=== PATIENT | female | born 1995 | race American Indian/Alaskan Native ===

== ENCOUNTER 2016-05-31 18:49 | Outpatient (CLI) | payer MEDICAID ==
[2016-05-31] MEDS ORDERED: LACTATED RINGERS 500 ML IV ONE (20:09)
[2016-05-31 21:23] LABS: Bilirubin,Urine NEG (Negative); Blood,Urine NEG (Negative); Ketones,Urine TR mg/dL (Negative); Leukocyte Esterase,Urine NEG (Negative); Mucus,Urine 3+ /HPF; Nitrite,Urine NEG (Negative); Urobilinogen,Urine < 2.0 mg/dL (<2.0)
[2016-05-31 21:28] VITALS: BP 95/49
== END 2016-05-31 21:45 | disposition home or self-care (01) ==
LOC: TRG 18:49
PROVIDERS: ATTEND Obstetrics & Gynecology
DX: O77.9 Labor and delivery complicated by fetal stress, unspecified (principal); O47.02 False labor before 37 completed weeks of gestation, second trimester; Z3A.23 23 weeks gestation of pregnancy
CPT/HCPCS: 59025; 81001

== ENCOUNTER 2016-08-04 13:51 | Outpatient (CLI) | payer MEDICAID ==
[2016-08-04 14:48] VITALS: BP 118/81
[2016-08-04] MEDS ORDERED: LACTATED RINGERS 500 ML IV ONE (16:07)
[2016-08-04 16:35] LABS: Bacteria,Urine 1+ /HPF (Negative); Bilirubin,Urine NEG (Negative); Blood,Urine NEG (Negative); Ketones,Urine TR mg/dL (Negative); Leukocyte Esterase,Urine NEG (Negative); Mucus,Urine 3+ /HPF; Nitrite,Urine NEG (Negative); Urobilinogen,Urine < 2.0 mg/dL (<2.0)
[2016-08-04] MEDS ORDERED: ZOFRAN PO ONE (16:45)
== END 2016-08-04 17:23 | disposition home or self-care (01) ==
LOC: TRG 13:51
PROVIDERS: ATTEND Obstetrics & Gynecology
DX: Z34.93 Encounter for supervision of normal pregnancy, unspecified, third trimester (principal); Z3A.32 32 weeks gestation of pregnancy
CPT/HCPCS: 59025; 81001; J7120; Q0162

== ENCOUNTER 2016-08-16 08:20 | Outpatient (CLI) | payer MEDICAID ==
--- NOTE | 2016-08-17 13:16 | Ultrasound Report ---
RIGHT UPPER QUADRANT ABDOMINAL ULTRASOUND: 08/16/16 08:20:00 CLINICAL: Right upper quadrant pain. FINDINGS: High-resolution ultrasound demonstrated a normal liver. Normal hepatic vasculature and inferior vena cava. Normally distended gallbladder with small stones layering dependently within the gallbladder. The gall bladder wall measures 1.5 mm in thickness. Normal intrahepatic and extra hepatic bile ducts. The common bile duct measures 3.9 mm diameter. The pancreas was not well imaged because of bowel gas. Normal upper abdominal aorta. The right kidney is normal and measures 10.5 x 4.1 x 4.6cm. No ascites or mass. IMPRESSION: Cholelithiasis but no signs of acute cholecystitis. No evidence of choledocholithiasis.
== END 2016-08-16 08:21 | disposition home or self-care (01) ==
LOC: US 08:20
PROVIDERS: ATTEND Obstetrics & Gynecology
DX: K80.20 Calculus of gallbladder without cholecystitis without obstruction (principal); K82.8 Other specified diseases of gallbladder
CPT/HCPCS: 76705

== ENCOUNTER 2016-11-04 08:45 | Emergency (ER) | payer MEDICAID ==
[2016-11-04 09:12] VITALS: BP 124/70
--- NOTE | 2016-11-04 09:45 | Emergency Department Report ---
Chief Complaint: Abdominal Pain Stated Complaint: ABD PAIN Time Seen by Provider: 11/04/16 09:05 - HPI History of Present Illness: here w dark brown vag bleeding had baby in August lmp september no bc not concerned std also w abd pain no dysuria g2 p 1 vss. nad - ROS Review of Systems: abd pain vag bleed pos home preg 4 days ago lmp September 2016 - Exam Vital Signs: Vital Signs 11/04/16 09:07 Temperature 98.7 F Pulse Rate 81 Respiratory 16 Rate Blood Pressure 124/70 O2 Sat by Pulse 100 Oximetry MSE screening note: Focused history and physical exam performed. Due to findings the following was ordered: ED Disposition for MSE Condition: Stable Instructions: Abdominal Pain (ED)
[2016-11-04 09:53] LABS: Anion Gap 19 mmol/L; BUN/Creatinine Ratio 14.44; Blood Urea Nitrogen 13 mg/dL (7-17); Calcium 9.3 mg/dL (8.4-10.2); Carbon Dioxide 23 mmol/L (22-30); Glucose 84 mg/dL (65-100); Sodium 140 mmol/L (137-145)
[2016-11-04 09:55] LABS: Basophils % (Auto) 0.3 % (0.0-1.8); Eosinophils % (Auto) 2.1 % (0.0-4.3); Hematocrit 40.1 % (30.3-42.9); Hemoglobin 13.1 gm/dl (10.1-14.3); Mean Corpuscular HGB Conc 33 % (30-34); Mean Corpuscular Hemoglobin 30 pg (28-32); Mean Corpuscular Volume 92 fl (79-97); Platelet Count 271 K/mm3 (140-440); Red Blood Count 4.36 M/mm3 (3.65-5.03); White Blood Count 10.7 K/mm3 (4.5-11.0)
[2016-11-04 10:12] LABS: Alanine Aminotransferase 14 units/L (7-56); Albumin 4.5 g/dL (3.9-5); Albumin/Globulin Ratio 1.3 %; Alkaline Phosphatase 61 units/L (35-129); Total Protein 7.9 g/dL (6.3-8.2)
[2016-11-04 10:16] LABS: Bilirubin,Direct < 0.2 mg/dL (0-0.2)
[2016-11-04 13:01] LABS: Bacteria,Urine 1+ /HPF (Negative); Bilirubin,Urine NEG (Negative); Blood,Urine MOD (Negative); Ketones,Urine NEG (Negative); Leukocyte Esterase,Urine SM (Negative); Mucus,Urine 1+ /HPF; Nitrite,Urine NEG (Negative); Protein,Urine <15 mg/dL mg/dL (Negative); Urobilinogen,Urine < 2.0 mg/dL (<2.0)
--- NOTE | 2016-11-04 13:24 | Event Note ---
Date: 11/04/16 numerous attempts to call pt. walked er waiting room and can not find her on 2 occasions Rn aware.
== END 2016-11-04 12:50 | disposition left against medical advice (07) ==
LOC: ED 08:45
DX: R10.9 Unspecified abdominal pain (principal); Z53.21 Procedure and treatment not carried out due to patient leaving prior to being seen by health care provider
CPT/HCPCS: 36415; 80048; 80074; 81001; 84702; 85025

== ENCOUNTER 2017-01-18 20:44 | Emergency (ER) | payer MEDICAID ==
[2017-01-18 21:31] VITALS: BP 130/80
[2017-01-18 22:34] LABS: Bilirubin,Urine NEG (Negative); Blood,Urine NEG (Negative); Ketones,Urine TR mg/dL (Negative); Leukocyte Esterase,Urine MOD (Negative); Mucus,Urine 3+ /HPF; Nitrite,Urine NEG (Negative); Urobilinogen,Urine < 2.0 mg/dL (<2.0)
[2017-01-18 22:39] LABS: Basophils % (Auto) 0.3 % (0.0-1.8); Eosinophils % (Auto) 1.7 % (0.0-4.3); Hematocrit 41.7 % (30.3-42.9); Hemoglobin 13.8 gm/dl (10.1-14.3); Mean Corpuscular HGB Conc 33 % (30-34); Mean Corpuscular Hemoglobin 30 pg (28-32); Mean Corpuscular Volume 91 fl (79-97); Platelet Count 267 K/mm3 (140-440); Red Cell Distribution Width 14.4 % (13.2-15.2); White Blood Count 11.3 K/mm3 (4.5-11.0)
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
== END 2017-01-19 03:21 | disposition left against medical advice (07) ==
LOC: ED 20:44
DX: N93.9 Abnormal uterine and vaginal bleeding, unspecified (principal); Z53.21 Procedure and treatment not carried out due to patient leaving prior to being seen by health care provider
CPT/HCPCS: 36415; 76801; 76817; 81001; 84702; 85025; 86850; 86900; 86901

== ENCOUNTER 2017-04-14 09:32 | Emergency (ER) | payer MEDICAID, OTHER ==
[2017-04-14 11:29] LABS: Bacteria,Urine 1+ /HPF (Negative); Bilirubin,Urine NEG (Negative); Blood,Urine NEG (Negative); Ketones,Urine NEG (Negative); Leukocyte Esterase,Urine NEG (Negative); Mucus,Urine FEW /HPF; Nitrite,Urine NEG (Negative); Protein,Urine <15 mg/dL mg/dL (Negative); Urobilinogen,Urine < 2.0 mg/dL (<2.0)
--- NOTE | 2017-04-14 13:17 | Emergency Department Report ---
ED Female HPI - General Chief complaint: Urogenital-Female Stated complaint: ABD PAIN/BURN WHEN URINATING Time Seen by Provider: 04/14/17 13:03 Source: patient Mode of arrival: Ambulatory Limitations: No Limitations - History of Present Illness Initial comments: PT c/o dysuria x 3 weeks. PT thinks she may have a UTI. PT denies having vaginal complaints. PT states she only has one male partner. PT states she had a depo shot this year and never followed up. PT states she still hasn't had a cycle. Complaint: dysuria -: Gradual, week(s) (three ) Quality: burning Consistency: intermittent Worsens with: urination Are you Now?: No Associated Symptoms: denies other symptoms. denies: vaginal discharge, vaginal bleeding, abdominal pain, nausea/vomiting, fever/chills - Related Data Sexually active: Yes : 1 Para: 1 Home Medications Medication Instructions Recorded Confirmed Last Taken Pnv No.95/Ferrous Fum/Folic AC 1 tab PO DAILY 08/26/16 08/26/16 08/25/16 09:00 [ Vitamins Tablet] Previous Rx's Medication Instructions Recorded Last Taken Type HYDROcodone/APAP 5-325 [Modale 1 each PO Q6HR PRN #30 tablet 08/28/16 Unknown Rx 5/325] Ibuprofen [Motrin 800 MG tab] 800 mg PO Q8HR PRN #30 tablet 08/28/16 Unknown Rx Allergies Allergy/AdvReac Type Severity Reaction Status Date / Time santizo flavor Allergy Swelling Verified 08/26/16 07:52 pear Allergy Swelling Verified 08/26/16 07:52 ED Review of Systems ROS: Stated complaint: ABD PAIN/BURN WHEN URINATING Other details as noted in HPI Comment: All other systems reviewed and negative Constitutional: denies: chills, fever Gastrointestinal: denies: nausea, vomiting Genitourinary: dysuria, abnormal menses. denies: discharge Musculoskeletal: denies: back pain ED Past Medical Hx - Past Medical History Previous Medical History?: Yes Hx Hypertension: Yes (hx of preeclampsia) Hx Congestive Heart Failure: No Hx Diabetes: No Hx Deep Vein Thrombosis: No Hx Renal Disease: No Hx Sickle Cell Disease: No Hx Seizures: No Hx Asthma: No Hx COPD: No Hx HIV: No Additional medical history: Vaginal delivery 08-27-2016 - Surgical History Past Surgical History?: No - Social History Smoking Status: Never Smoker Substance Use Type: Alcohol - Medications Home Medications: Home Medications Medication Instructions Recorded Confirmed Last Taken Type Pnv No.95/Ferrous Fum/Folic AC 1 tab PO DAILY 08/26/16 08/26/16 08/25/16 09:00 History [ Vitamins Tablet] HYDROcodone/APAP 5-325 [Modale 1 each PO Q6HR PRN #30 tablet 08/28/16 Unknown Rx 5/325] Ibuprofen [Motrin 800 MG tab] 800 mg PO Q8HR PRN #30 tablet 08/28/16 Unknown Rx ED Physical Exam - General Limitations: No Limitations General appearance: alert, in no apparent distress - Head Head exam: Present: atraumatic, normocephalic, normal inspection - Eye Eye exam: Present: normal appearance, PERRL, EOMI - ENT ENT exam: Present: normal exam, mucous membranes moist, normal external ear exam - Neck Neck exam: Present: normal inspection, full ROM - Respiratory Respiratory exam: Present: normal lung sounds bilaterally. Absent: respiratory distress, chest wall tenderness - Cardiovascular Cardiovascular Exam: Present: regular rate, normal rhythm, normal heart sounds - GI/Abdominal GI/Abdominal exam: Present: soft. Absent: distended, tenderness - External exam: Present: normal external exam Speculum exam: Present: vaginal discharge (thick white discharge - appears like candidiasis ) Bi-manual exam: Present: normal bi-manual exam. Absent: cervical motion tendernes, adnexal tenderness, adnexal mass, uterine enlargement, uterine tenderness - Extremities Exam Extremities exam: Present: normal inspection, full ROM - Back Exam Back exam: Present: normal inspection, full ROM. Absent: tenderness, CVA tenderness (R), CVA tenderness (L) - Neurological Exam Neurological exam: Present: alert, oriented X3 - Psychiatric Psychiatric exam: Present: normal affect, normal mood - Skin Skin exam: Present: warm, dry, intact ED Course Vital Signs 04/14/17 04/14/17 10:31 14:49 Temperature 98.7 F Pulse Rate 98 H 74 Respiratory 16 20 Rate Blood Pressure 128/73 Blood Pressure 126/76 [Right] O2 Sat by Pulse 98 98 Oximetry - Reevaluation(s) Reevaluation #1: 04/14/17 13:17 PT aware of UA result. Reevaluation #2: 04/14/17 14:22 PT aware of abnormal PE findings. Reevaluation #3: 04/14/17 14:55 PT left before wet prep results available. - Pulse Oximetry Interpretation Digit-Finger Initial Pulse Oximetry Readin Actions Taken: none ED Medical Decision Making - Lab Data Laboratory Results - last 24 hr 04/14/17 04/14/17 10:58 10:58 Urine Color Yellow Urine Turbidity Clear Urine pH 7.0 Ur Specific [place] 1.017 Urine Protein <15 mg/dl Urine Glucose (UA) Neg Urine Ketones Neg Urine Blood Neg Urine Nitrite Neg Urine Bilirubin Neg Urine Urobilinogen < 2.0 Ur Leukocyte Esterase Neg Urine WBC (Auto) 2.0 Urine RBC (Auto) 1.0 U Epithel Cells (Auto) 2.0 Urine Bacteria (Auto) 1+ Urine Mucus Few Urine HCG, Qual Negative - Differential Diagnosis uti, std, , vaginitis Critical Care Time: No Critical care attestation.: If time is entered above; I have spent that time in minutes in the direct care of this critically ill patient, excluding procedure time. ED Disposition Clinical Impression: Dysuria Disposition: Z-07 ELOPED Is pt being admited?: No Does the pt Need Aspirin: No Condition: Stable Referrals: PRIMARY CAREMD [Primary Care Provider] - 3-5 Days Time of Disposition: 14:56
[2017-04-14 14:50] VITALS: BP 126/76
== END 2017-04-14 13:04 | disposition left against medical advice (07) ==
LOC: ED 09:32
DX: R30.0 Dysuria (principal); I10 Essential (primary) hypertension; Z91.018 Allergy to other foods
CPT/HCPCS: 81001; 81025; 87210; 87591; 99283

== ENCOUNTER 2021-03-28 23:03 | Emergency (ER) | payer MEDICAID, OTHER ==
[2021-03-28 23:08] VITALS: BP 114/74
--- NOTE | 2021-03-29 00:46 | Emergency Department Report ---
ED General Adult HPI - General Chief complaint: Nosebleed Stated complaint: 34 WEEKS PREG NOSE BLEED Time Seen by Provider: 03/29/21 00:06 Source: patient Mode of arrival: Ambulatory Limitations: No Limitations - History of Present Illness Initial comments: 25-year-old -British female patient presents with complaints of R sided nose bleed x 8 pm today. She reports the nosebleed stopped after about 1-2 hours. She denies any nasal pain. She admits to some nasal drainage and congestion, but denies any nasal pain or fever/chills or sweats. She also admits to intermittent headache for the past week that resolves with Tylenol. No headache at this time per patient. She denies any numbness/tingling/weakness in her limbs, vision changes, dizziness, difficulty with speech/ambulation, confusion, or memory loss. Patient reports she is drinking approximately 16 ounces of water a day. She is currently 34 weeks . Her next follow-up with her MORTGAGE LOAN PROCESSOR is this coming Friday. - Related Data Home Medications Medication Instructions Recorded Confirmed Last Taken Pnv No.95/Ferrous Fum/Folic AC 1 tab PO DAILY 08/26/16 08/26/16 08/25/16 09:00 [ Vitamins Tablet] Previous Rx's Medication Instructions Recorded Last Taken Type HYDROcodone/APAP 5-325 [Speed 1 each PO Q6HR PRN #30 tablet 08/28/16 Unknown Rx 5/325] Ibuprofen [Motrin 800 MG tab] 800 mg PO Q8HR PRN #30 tablet 08/28/16 Unknown Rx Allergies Allergy/AdvReac Type Severity Reaction Status Date / Time santizo flavor Allergy Swelling Verified 08/26/16 07:52 pear Allergy Swelling Verified 08/26/16 07:52 ED Review of Systems ROS: Stated complaint: 34 WEEKS PREG NOSE BLEED Other details as noted in HPI Constitutional: denies: chills, fever, malaise Eyes: denies: eye pain, vision change Gastrointestinal: denies: abdominal pain, nausea, vomiting Genitourinary: denies: urgency, dysuria, frequency, hematuria, abnormal menses Musculoskeletal: denies: back pain Skin: denies: change in color Neurological: as per HPI. denies: headache, numbness, paresthesias, abnormal gait ED Past Medical Hx - Past Medical History Previous Medical History?: Yes Hx Hypertension: Yes (hx of preeclampsia) Hx Congestive Heart Failure: No Hx Diabetes: No Hx Deep Vein Thrombosis: No Hx Renal Disease: No Hx Sickle Cell Disease: No Hx Seizures: No Hx Asthma: No Hx COPD: No Hx HIV: No Additional medical history: Vaginal delivery 08-27-2016 - Surgical History Past Surgical History?: No - Social History Smoking Status: Never Smoker Substance Use Type: Alcohol - Medications Home Medications: Home Medications Medication Instructions Recorded Confirmed Last Taken Type Pnv No.95/Ferrous Fum/Folic AC 1 tab PO DAILY 08/26/16 08/26/16 08/25/16 09:00 History [ Vitamins Tablet] HYDROcodone/APAP 5-325 [Speed 1 each PO Q6HR PRN #30 tablet 08/28/16 Unknown Rx 5/325] Ibuprofen [Motrin 800 MG tab] 800 mg PO Q8HR PRN #30 tablet 08/28/16 Unknown Rx ED Physical Exam - General Limitations: No Limitations General appearance: alert, in no apparent distress - Head Head exam: Present: atraumatic, normocephalic - Eye Eye exam: Present: normal appearance. Absent: PERRL, scleral icterus - ENT ENT exam: Present: other (Dried blood noted to right anterior nare; no active bleeding or tenderness noted; no swelling of the face noted) - Neck Neck exam: Present: normal inspection - Respiratory Respiratory exam: Absent: respiratory distress - Cardiovascular Cardiovascular Exam: Present: regular rate - Extremities Exam Extremities exam: Absent: pedal edema, other (No extremity swelling noted) - Neurological Exam Neurological exam: Present: alert, oriented X3, CN II-XII intact, normal gait - Psychiatric Psychiatric exam: Present: normal affect, normal mood - Skin Skin exam: Present: warm, dry, intact, normal color. Absent: rash ED Course Vital Signs 03/28/21 23:06 Temperature 98.5 F Pulse Rate 98 H Respiratory 18 Rate Blood Pressure 114/74 O2 Sat by Pulse 100 Oximetry - Procedure Description Procedures done: Area prepped with Betadine. 4 cc of lidocaine 1% with epi used to anesthetize area. 15 blade used to make an approximately 2 cm incision of foreign body. Metal round foreign body removed from wound. Wound closed using 3-0 Ethilon sutures, 5 continuous sutures placed. Sterile dressing placed. Patient tolerated procedure well without any immediate complications. Patient has full range of motion of the elbow, hand, wrist, fingers, and normal perfusion of the fingers and normal ulnar and radial pulses post procedure. She also has normal sensation of the hand and fingers post procedure ED Medical Decision Making - Medical Decision Making 25-year-old -British female patient presents with complaints of R sided nose bleed x 8 pm today. She reports the nosebleed stopped after about 1-2 hours. She denies any nasal pain. She admits to some nasal drainage and co ngestion, but denies any nasal pain or fever/chills or sweats. She also admits to intermittent headache for the past week that resolves with Tylenol. No headache at this time per patient. She denies any numbness/tingling/weakness in her limbs, vision changes, dizziness, difficulty with speech/ambulation, confusion, or memory loss. Patient reports she is drinking approximately 16 ounces of water a day. She is currently 34 weeks . Her next follow-up with her MORTGAGE LOAN PROCESSOR is this coming Friday. Patient neurologically intact on exam. Suspect dehydration as cause of intermittent headaches. Patient to follow-up with her MORTGAGE LOAN PROCESSOR as scheduled. Recommend Neosporin topically for nosebleed 3 times a day to the right inner nare. She is well-appearing, her vitals are normal, she is stable for discharge home. Discussed in detail signs symptoms that should prompt immediate return to the ED with patient verbalizes understanding. Critical care attestation.: If time is entered above; I have spent that time in minutes in the direct care of this critically ill patient, excluding procedure time. ED Disposition Clinical Impression: Nosebleed, Dehydration Disposition: 01 HOME / SELF CARE / HOMELESS Is pt being admited?: No Condition: Stable Instructions: Dehydration, Adult, [place], Nosebleed, Adult Additional Instructions: Is follow-up with your MORTGAGE LOAN PROCESSOR as scheduled on Friday of next week Referrals: PRIMARY CARE, [Primary Care Provider] - 3-5 Days
== END 2021-03-29 01:05 | disposition home or self-care (01) ==
LOC: ED 23:03
DX: O26.893 Other specified pregnancy related conditions, third trimester (principal); R04.0 Epistaxis; E86.0 Dehydration; I10 Essential (primary) hypertension; Z91.018 Allergy to other foods
CPT/HCPCS: 99282